=== PATIENT | female | born 1980 | race Two or more races ===

== ENCOUNTER 2024-09-15 10:15 | Inpatient (IN) | payer OTHER ==
[~2024-09-15] VITALS: Ht 170.2 cm; Wt 76.7 kg
[2024-09-15 12:18] VITALS: BP 142/82
[2024-09-15 12:18] LABS: RH POSITIVE
[2024-09-15 12:24] VITALS: BP 138/92
[2024-09-22] MEDS ORDERED: CEFAZOLIN SODIUM 1,000 MG VIAL ONE (12:13)
[2024-09-22] MEDS ORDERED: EPINEPHRINE HCL/PF 1 MG/ML AMPUL ONE (12:41)
[2024-09-22] MEDS ORDERED: MORPHINE SULFATE 4 MG/ML VIAL IV ONE (14:10)
[2024-09-22] MEDS ORDERED: PROMETHAZINE HCL 25 MG/ML AMPUL IV PRN (14:15)
[2024-09-22] MEDS ORDERED: PROMETHAZINE HCL 25 MG/ML AMPUL ONE (14:25)
[2024-09-22] MEDS ORDERED: ONDANSETRON HCL 2 MG/ML VIAL ONE (14:25)
[2024-09-22] MEDS ORDERED: MEPERIDINE HCL/PF 50 MG/ML VIAL IV PRN (14:30)
[2024-09-22] MEDS ORDERED: MEPERIDINE HCL 50 MG/ML AMPUL IV ONE (14:40)
[2024-09-22 17:12] VITALS: BP 142/82
[2024-09-22 21:20] VITALS: BP 140/85
[2024-09-22 23:16] LABS: HEMATOCRIT 37.7 % (36.0-45.00); HEMOGLOBIN 12.4 g/dL (12.0-15.00); MEAN CORPUSCULAR HEMOGLOBIN 31.2 pg (27.00-32.0); MEAN CORPUSCULAR HGB CONC 32.9 g/dl (32.0-36.0); PLATELET COUNT 237 K/uL (150-450); RED BLOOD COUNT 3.97 M/uL (4.00-6.00)
[2024-09-23 01:32] VITALS: BP 132/82
[2024-09-23 04:10] VITALS: BP 131/78
[2024-09-23 08:39] VITALS: BP 140/70
[2024-09-23] MEDS ORDERED: OxyCODONE HCL/APAP UD (PERCOCET) PO PRN (09:00)
[2024-09-23] MEDS ORDERED: DOCUSATE SODIUM 100MG CAP PO SCH (09:00)
[2024-09-23] MEDS ORDERED: SIMETHICONE 125 MG CAPSULE PO SCH (09:00)
[2024-09-23 15:54] VITALS: BP 119/67
[2024-09-23 20:00] VITALS: BP 130/85
[2024-09-23 23:58] VITALS: BP 100/64
[2024-09-24 04:56] VITALS: BP 96/59
[2024-09-24 08:10] VITALS: BP 122/79
== END 2024-09-24 14:38 | disposition home or self-care (01) | DRG 743 ==
LOC: OB/GYN 09-22 05:50 → O/R 09-22 05:50 → SURG 09-22 07:00 → OB/GYN 09-22 15:42
PROVIDERS: ADMIT Obstetrics & Gynecology; ATTEND Obstetrics & Gynecology
PROC: 0UB90ZZ Excision of Uterus, Open Approach (ICD-10-PCS; principal; 2024-09-22 09:00)
DX: D25.0 Submucous leiomyoma of uterus (principal); N92.0 Excessive and frequent menstruation with regular cycle; D25.1 Intramural leiomyoma of uterus; Z98.890 Other specified postprocedural states

== ENCOUNTER 2024-09-28 04:18 | Emergency (ER) | payer OTHER ==
[~2024-09-28] VITALS: Ht 170.2 cm; Wt 76.7 kg
[2024-09-28 05:15] LABS: HEMATOCRIT 33.1 % (36.0-45.00); MEAN CELL VOLUME 93.9 fL (80.00-100.00); MEAN CORPUSCULAR HEMOGLOBIN 31.4 pg (27.00-32.0); MEAN CORPUSCULAR HGB CONC 33.4 g/dl (32.0-36.0); PLATELET COUNT 290 K/uL (150-450); RED BLOOD COUNT 3.52 M/uL (4.00-6.00); RED CELL DISTRIBUTION WIDTH 11.9 % (11.5-14.5)
[2024-09-28 05:38] LABS: CREATININE SERUM 0.67 mg/dL (0.55-1.02); GFR 96.06; POTASSIUM 3.98 mEq/L (3.5-5.1)
[2024-09-28 06:28] LABS: URINE APPEARANCE Clear; URINE BILIRRUBIN Negative (NEGATIVE); URINE BLOOD Moderate; URINE COLOR Yellow; URINE GLUCOSE Negative (NEGATIVE); URINE KETONE Negative (NEGATIVE); URINE LEUKOCYTE Negative; URINE NITRATE Negative; URINE PROTEIN Negative (NEGATIVE); URINE UROBILINOGEN 0.2 E.U./dl
[2024-09-28 06:32] LABS: URINE BACTERIA 50.1 uL (0.0-1933); URINE EPITHELIAL CELLS 6.9 uL (0.0-38.8); URINE RBC 40.4 uL (0.0-20.8)
[2024-09-28 06:34] LABS: URINE WBC 0.7 uL (0.0-23.2)
== END 2024-09-28 07:41 ==
LOC: ER 04:20
PROVIDERS: General Practice
DX: R50.9 Fever, unspecified (principal); Z20.822 Contact with and (suspected) exposure to COVID-19